=== PATIENT | male | born 1985 | race Caucasian/White ===

== ENCOUNTER → 2022-09-30 | Outpatient (CLI) | payer BC, SELFPAY ==
[2022-09-30 12:57] LABS: ALB/GLOB Ratio 1.3 RATIO (0.9-2.4); AST(SGOT) 19 U/L (15-37); Alanine Aminotransfer ALT/SGPT 35 U/L (16-61); Alkaline Phosphatase 81 U/L (45-117); Anion Gap 6 (5-15); BUN 19 mg/dL (7-18); BUN/Creat Ratio 21.4 RATIO (10-20); Calcium,Total 9.3 mg/dL (8.5-10.1); Chloride 109 mmol/L (98-107); Cholesterol 161 mg/dL (200); Creatinine, Serum 0.89 mg/dL (0.70-1.30); EST Glomerular Filtration Rate 102 mL/min (>60); Est Glom Filt Rate - Afr Amer 124 mL/min (>60); Globulin 3.1 g/dL (2.2-4.2); Glucose 95 mg/dL (74-106); High Density Lipoprotein 35 mg/dL; Protein, Total 7.1 g/dL (6.4-8.2); Sodium Level 142 mmol/L (136-145); Triglycerides 118 mg/dL; Very Low Density Lipoprotein 24 mg/dL (5-40)
[2022-09-30 13:04] LABS: Absolute Lymphocyte Count 2.53 X10^3/uL (0.83-4.51); Absolute Neutrophil Count 3.3 X10^3/uL (2.0-7.7); Basophil# 0.06 X10^3/uL; Basophil% 0.9 % (0-1); Eosinophils% 1.5 % (0-5); Hematocrit 43.3 % (40-54); Lymphocyte # 2.53 X10^3/ul (0.83-4.51); Lymphocyte % 38.2 % (19-41); Mean Corp Hgb Conc 32.3 g/dL (32-36); Mean Corpuscular Hgb 29.7 pg (27.0-32.0); Mean Corpuscular Volume 91.9 fL (80-94); Monocyte% 9.1 % (0-10); NRBC Flagged by Analyzer 0 % (0-5); Neutrophil # 3.32 X10^3/uL (2.7-7.7); Neutrophil % 50.1 % (47-70); Platelet Count 196 K/mm3 (150-450); RBC Distribution Width CV 13.1 % (11.6-14.6); RBC Distribution Width SD 43.8 fl (35.1-43.9); Red Blood Count 4.71 M/mm3 (4.6-6.2); White Blood Count 6.6 K/mm3 (4.4-11.0)
== END | disposition home or self-care (01) ==
LOC: BIMLAB 09:12
PROVIDERS: PCP Nurse Practitioner Family; Referring Provider Nurse Practitioner Family; Visit Provider Nurse Practitioner Family
DX: Z00.00 Encounter for general adult medical examination without abnormal findings (principal)
CPT/HCPCS: 36415; 80053; 80061; 84443; 85025

== ENCOUNTER 2023-04-24 22:12 | Emergency (ER) | payer OTHER, BC, MEDICAID, SELFPAY ==
[2023-04-24 22:14] VITALS: BP 129/74; PULSE 70; RESP 16; TEMP 35.8; BMI 36.4
[2023-04-24 22:17] VITALS: BP 129/74; PULSE 70; RESP 16; TEMP 35.8
--- NOTE | 2023-04-24 22:35 | EX.ED.UPPERE ---
HPI History of Present Illness Chief Complaint: Upper Extremity Injury Informant: patient Narrative Narrative: Patient is a 37-year-old male with past medical history of osteoarthritis and obstructive sleep apnea. He is right-hand dominant and was at work this evening. He states approximately 30 minutes to 1 hour prior to arrival a piece of equipment that weighs roughly 75 to 100 pounds fell approximately 1 foot and landed on his right hand mainly his right thumb. He states he has had pain and swelling difficulty moving the extremity since the injury. With concern for fracture he presents for evaluation. He denies any other injury other than the right hand/thumb. [facility] Medical History History of fracture HELEN (obstructive sleep apnea) Osteoarthritis Home Medications meloxicam 7.5 mg tablet 7.5 - 15 mg (1 - 2 x 7.5 mg) PO DAILY PRN ARTHRITIS PAIN #60 tabs 04/20/23 [Rx Last Taken Unknown] Allergy/AdvReac Type Severity Reaction Status Date / Time No Known Allergies Allergy Verified 04/24/23 22:22 Family History Father Diabetes Surgical History History of dental surgery Social History household members: significant other current occupational status: employed current occupation: [employer] Smoking Status: Never smoker Electronic Cigarette Use: not used alcohol intake: former details: never heavy a drinker substance use type: does not use what type of physical activity do you participate in: none do you feel safe at home: Yes ROS ROS ED Constitutional Constitutional ED: Denies chills or fever(s) ENT ENT ED: Denies sore throat Cardiovascular Cardiovascular: Denies chest pain Respiratory/Chest Respiratory/Chest: Denies cough or dyspnea Gastrointestinal Gastrointestinal: Denies abdominal pain, diarrhea, nausea or vomiting Genitourinary Genitourinary ED: Denies dysuria Musculoskeletal Musculoskeletal: Reports other Details: Positive right hand/thumb pain Integumentary Denies rash Neurologic Neurologic: Reports paresthesias; Denies headache(s) Hematologic/Lymphatic Hematologic/Lymphatic: Denies easy bleeding or easy bruising EXAM Physical Exam Const Vital Signs: 04/24/23 22:14 04/24/23 22:17 Temperature 96.4 F L 96.4 F L Temperature Source Temporal Temporal Pulse Rate 70 70 Respiratory Rate 16 16 Blood Pressure 129/74 H 129/74 H Blood Pressure Mean 92 92 Positive well nourished and well developed General Appearance ED: well developed HEENT HEENT Narrative: Normocephalic atraumatic Eyes PERRL and EOMs intact bilaterally Neck supple Resp normal respiratory effort and clear to auscultation bilaterally Cardio regular rate and regular rhythm Extremity Extremity Narrative: Right upper extremity is neurovascularly intact. There is soft tissue swelling to the dorsal aspect of the right thumb. The compartments are soft going against compartment syndrome. There is no obvious bony deformity or joint effusion. There is pain with palpation mainly of the first proximal phalanx. Active range of motion is decreased secondary to pain but is still present. No obvious subungual hematoma or flexor or extensor tendon injury. No pain in the anatomical snuffbox Remainder the exam is normal Neuro oriented x3 and CN's II-XII intact bilaterally Sensorium / Orientation: alert Psych mental status grossly normal Skin no rashes or lesions noted Skin Narrative: Soft tissue swelling to the right thumb as documented above MDM MDM MDM Narrative Medical decision making narrative: Patient presented to the ER after a crush injury to his right hand mainly his right thumb. With concern for fracture versus dislocation versus contusion and x-ray was obtained. X-ray revealed no acute fracture or dislocation by exam he does not have findings of a ligamentous or tendon injury. This indicates patient has a right thumb contusion. At this time treatment is symptomatic such as ice Tylenol and/or Motrin and rest. As there is no signs of acute fracture dislocation or tendon injury patient can be discharged home with symptomatic care. History & Record Review Discussion w/independent historian: Patient Radiography Diagnostic Testing: Right hand x-ray is interpreted by the emergency medicine physician reveals a old scaphoid fracture without acute fracture or dislocation Discharge Plan Triage Chief Complaint: Upper Extremity Injury ED Provider: Lee Arana Dx/Rx/DC Orders Clinical Impression: Contusion of right thumb, HELEN (obstructive sleep apnea) Instructions: Bone Contusion, ED Crush Injury, Hand Prescriptions: No Action meloxicam 7.5 mg tablet 7.5 - 15 mg PO DAILY PRN (Reason: ARTHRITIS PAIN) Qty: 60 5RF Primary Care Provider: Lesley Sanchez Referrals: Lesley Sanchez MD [Primary Care Provider] - Activity Restrictions/Additional Instructions: Please continue to ice the injured area and take Tylenol and/or Motrin for pain control. It will typically take 5 to 10 days for your symptoms to resolve. You can return to work without any restrictions at your next scheduled shift. Please return to the ER should you have any further concerns Disposition Disposition: Home, Self Care
--- NOTE | 2023-04-24 22:45 | RAD_ITS ---
INDICATION: injury EXAMINATION/TECHNIQUE: X-RAY - RIGHT XR Hand 3 VIEWS COMPARISON: FINDINGS: SOFT TISSUES: No soft tissue swelling or gas. No radiopaque foreign body. BONES/JOINTS: No acute fracture or subluxation.. Old fracture of the scaphoid. Normal alignment. Preservation of the joint space.. No sclerotic or destructive changes observed. RAD/Hand Min 3 Views IMPRESSION: Old scaphoid fracture. Electronically Signed: Ga Up DO at 23:33 EDT ,
[2023-04-24] MEDS: Oxycodone/Apap 5/325 Tablet PO (22:54)
[2023-04-24 23:59] VITALS: BP 129/74; PULSE 70; RESP 16
== END 2023-04-25 00:05 | disposition home or self-care (01) ==
PROVIDERS: Emergency Provider Emergency Medicine; PCP Internal Medicine; Visit Provider Emergency Medicine
DX: S60.011A Contusion of right thumb without damage to nail, initial encounter (principal); S67.01XA Crushing injury of right thumb, initial encounter; W20.8XXA Other cause of strike by thrown, projected or falling object, initial encounter; Y99.0 Civilian activity done for income or pay; G47.33 Obstructive sleep apnea (adult) (pediatric)
CPT/HCPCS: 73130; 99282

== ENCOUNTER → 2023-07-20 | Outpatient (CLI) | payer BC, SELFPAY ==
[2023-07-20 16:47] LABS: Absolute Neutrophil Count 3.7 X10^3/uL (2.0-7.7); Basophil# 0.07 X10^3/uL; Eosinophil# 0.08 X10^3/uL; Eosinophils% 1.2 % (0-5); Hematocrit 47.1 % (40-54); Hemoglobin 15.4 g/dL (13.0-16.5); Lymphocyte % 35.3 % (19-41); Mean Corp Hgb Conc 32.7 g/dL (32-36); Mean Corpuscular Hgb 29.8 pg (27.0-32.0); Mean Corpuscular Volume 91.1 fL (80-94); Mean Platelet Vol. 11.7 fl (6.2-12.0); Monocyte# 0.48 X10^3/uL; Monocyte% 7.1 % (0-10); NRBC Flagged by Analyzer 0 % (0-5); Neutrophil # 3.74 X10^3/uL (2.7-7.7); Neutrophil % 55.1 % (47-70); Platelet Count 205 K/mm3 (150-450); RBC Distribution Width CV 12.9 % (11.6-14.6); RBC Distribution Width SD 43.4 fl (35.1-43.9); Red Blood Count 5.17 M/mm3 (4.6-6.2); White Blood Count 6.8 K/mm3 (4.4-11.0)
[2023-07-20 17:06] LABS: Erythrocyte Sedimentation Rate 6 mm/hr (0-20)
[2023-07-20 17:46] LABS: ALB/GLOB Ratio 1.2 RATIO (0.9-2.4); AST(SGOT) 28 U/L (15-37); Alanine Aminotransfer ALT/SGPT 45 U/L (16-61); Albumin, Serum 4.2 g/dL (3.2-5.0); Alkaline Phosphatase 109 U/L (45-117); Anion Gap 8 (5-15); BUN 15 mg/dL (7-18); BUN/Creat Ratio 15.7 RATIO (10-20); CRP < 2.90 mg/L (0.0-3.0); Calcium,Total 9.1 mg/dL (8.5-10.1); Chloride 110 mmol/L (98-107); Creatinine, Serum 0.96 mg/dL (0.70-1.30); EST Glomerular Filtration Rate 93 mL/min (>60); Est Glom Filt Rate - Afr Amer 113 mL/min (>60); Globulin 3.4 g/dL (2.2-4.2); Glucose 102 mg/dL (74-106); Potassium 3.8 mmol/L (3.5-5.1); Protein, Total 7.6 g/dL (6.4-8.2); Rheumatoid Factor < 10.0 IU/mL (<15); Sodium Level 141 mmol/L (136-145)
[2023-07-22 12:09] LABS: ANTINUCLEAR ANTIBODIES DIRECT Negative (Negative); Anti-Centromere B Ab <0.2 AI (0.0-0.9); Anti-Chromatin <0.2 AI (0.0-0.9); Anti-Jo <0.2 AI (0.0-0.9); Anti-Scleroderma-70 AB 0.2 AI (0.0-0.9); Anti-dsDNA Ab <1 IU/mL (0-9); CCP IgG Antibodies 7 units (0-19); RNP Ab 0.3 AI (0.0-0.9); SJOGREN'S Anti-SS-A test 0.2 AI (0.0-0.9); SJOGREN'S Anti-SS-B test < 0.2 AI (0.0-0.9); Smith Ab <0.2 AI (0.0-0.9)
== END | disposition home or self-care (01) ==
LOC: BIMLAB 15:03
PROVIDERS: PCP Internal Medicine; Visit Provider Internal Medicine
DX: M25.50 Pain in unspecified joint (principal)
CPT/HCPCS: 36415; 80053; 85025; 85652; 86038; 86140; 86200; 86225; 86235; 86431

== ENCOUNTER → 2023-09-01 | Outpatient (CLI) | payer BC, SELFPAY ==
[2023-09-01 13:50] LABS: Bacteria 0 SEEN /hpf (None Seen); Mucous, Urine 0 SEEN /hpf (<or=2+); Red Blood Cells-Urine 0 SEEN /hpf (0-5)
[2023-09-01 15:29] LABS: Color, Urine Yellow (Yellow); Glucose, Dipstick Normal (Normal); Ketone-Dipstick Negative (Negative); Leukocyte Esterase-Dipstick Negative /ul (Negative); Nitrite-Dipstick Negative (Negative); Occult Blood-Urine Negative /ul (Negative); Protein-Dipstick 15 mg/dl (Negative); Specific Gravity, Urine 1.025 (1.002-1.030); Urine Bilirubin Dipstick Negative (Negative); Urine Clarity Clear (Clear); Urine Urobilinogen Normal (Normal)
[2023-09-01 16:06] LABS: Squamous Epithelial Cells - UA 0 SEEN /hpf (0-5); White Blood Cells 0-5 SEEN /hpf (0-5)
== END | disposition home or self-care (01) ==
LOC: LABSPEC 13:29
PROVIDERS: PCP Internal Medicine; Visit Provider Internal Medicine
DX: R82.90 Unspecified abnormal findings in urine (principal)
CPT/HCPCS: 81001

== ENCOUNTER → 2024-09-22 | Outpatient (CLI) | payer MEDICAID, SELFPAY ==
[2024-09-22 15:16] LABS: Mean Corp Hgb Conc 33.3 g/dL (32-36); Mean Corpuscular Hgb 29.9 pg (27.0-32.0); Mean Corpuscular Volume 89.6 fL (80-94); Mean Platelet Vol. 12.4 fl (6.2-12.0); Platelet Count 225 K/mm3 (150-450); RBC Distribution Width SD 42.2 fl (35.1-43.9); Red Blood Count 5.02 M/mm3 (4.6-6.2); White Blood Count 8.3 K/mm3 (4.4-11.0)
[2024-09-22 20:04] LABS: ALB/GLOB Ratio 1.6 RATIO (0.9-2.4); AST(SGOT) 31 U/L (<=37); Alanine Aminotransfer ALT/SGPT 61 U/L (<=46); Albumin, Serum 4.5 g/dL (3.5-5.0); Alkaline Phosphatase 113 U/L (40-129); Anion Gap 13 (5-15); BUN 11 mg/dL (4-19); BUN/Creat Ratio 11.4 RATIO (10-20); Calcium,Total 10.1 mg/dL (7.6-11.0); Carbon Dioxide 20.5 mmol/L (21.0-32.0); Chloride 105 mmol/L (98-108); Cholesterol 188 mg/dL (<=200); Creatinine, Serum 0.92 mg/dL (0.70-1.20); EST Glomerular Filtration Rate 108 (>60); Globulin 2.8 g/dL (2.2-4.2); Glucose 96 mg/dL (70-99); High Density Lipoprotein 30 mg/dL; Low Density Lipoprotein Calc. 85 mg/dL; Potassium 4.4 mmol/L (3.3-5.1); Protein, Total 7.3 g/dL (5.9-8.4); Sodium Level 139 mmol/L (133-145); Total Bilirubin 0.26 mg/dL (0.00-1.30); Triglycerides 367 mg/dL; Very Low Density Lipoprotein 73 mg/dL (5-40); cholesterol:hdl ratio screen 6.29
== END | disposition home or self-care (01) ==
LOC: BIMLAB 11:47
PROVIDERS: PCP Internal Medicine; Referring Provider Physician Assistant; Visit Provider Physician Assistant
DX: Z00.00 Encounter for general adult medical examination without abnormal findings (principal); M25.50 Pain in unspecified joint; F32.5 Major depressive disorder, single episode, in full remission
CPT/HCPCS: 36415; 80053; 80061; 84443; 85027

== ENCOUNTER → 2025-03-27 | Outpatient (CLI) | payer MEDICAID, SELFPAY ==
--- NOTE | 2025-03-27 10:09 | RAD_ITS ---
PROCEDURE: ANKLE MIN 3 VIEWS 03/27/2025 REASON FOR EXAM: LEFT ANKLE INJURY Lateral pain. TECHNIQUE: Procedure Code: RADANK Modality: DX Procedure: ANKLE MIN 3 VIEWS Laterality: Left ankle COMPARISON: None FINDINGS: Bones: No fracture seen. Joints: Normal alignment. Mortise appears intact. No effusion. Soft tissues: Lateral soft tissue swelling Other: RAD/Ankle min 3 Views IMPRESSION: Soft tissue swelling. No fracture or dislocation seen. Reading Location: [facility]
== END | disposition home or self-care (01) ==
LOC: MTRAD 10:09
PROVIDERS: PCP Internal Medicine; Referring Provider Physician Assistant; Visit Provider Physician Assistant
DX: S99.912A Unspecified injury of left ankle, initial encounter (principal); X58.XXXA Exposure to other specified factors, initial encounter
CPT/HCPCS: 73610